=== PATIENT | male | born 1950 | race Caucasian/White ===

== ENCOUNTER 2023-05-15 12:31 | Outpatient (RCR) | payer BC, SELFPAY | END 2023-07-09 14:34 | disposition home or self-care (01) | LOC: HO.WCC 12:31 | PROVIDERS: PCP Internal Medicine; Visit Provider Surgery | DX: S61.412S Laceration without foreign body of left hand, sequela (principal); Z99.2 Dependence on renal dialysis | CPT/HCPCS: 11042; 97597; 99212 ==